=== PATIENT | male | born 2000 | race Caucasian/White ===

== ENCOUNTER 2018-01-14 00:27 | Emergency (ER) | payer SELFPAY ==
[2018-01-14] MEDS ORDERED: Tetracaine 0.5% OPHTH SOLN/PF 4 ML BOT ONE (00:38)
[2018-01-14] MEDS ORDERED: HYDROcodone/Acetaminophen 10/325 mg Tablet ONE (00:47)
== END 2018-01-14 01:05 | disposition home or self-care (01) ==
LOC: MADERS 00:27
DX: H16.133 Photokeratitis, bilateral (principal); F17.210 Nicotine dependence, cigarettes, uncomplicated; W89.8XXA Exposure to other man-made visible and ultraviolet light, initial encounter
CPT/HCPCS: 99283

== ENCOUNTER 2018-01-31 15:49 | Emergency (ER) | payer BC, SELFPAY ==
[~2018-01-31 15:49] MED LIST: Sodium Chloride 0.9% 1,000 ML BAG ONE
[2018-01-31] MEDS ORDERED: Ondansetron ODT 4 MG TAB ONE (17:10)
[2018-01-31] MEDS ORDERED: Ketorolac Tromethamine 30 MG/ML VIAL ONE (17:10)
[2018-01-31] MEDS ORDERED: Diphenoxylate HCl/Atropine Tablet ONE (17:10)
[2018-01-31] MEDS ORDERED: Metoclopramide HCl 10 MG/2 ML VIAL ONE (17:10)
[2018-01-31 17:14] LABS: Bilirubin Negative (Negative); Blood, Urine Negative (Negative); Clarity Clear (Clear); Glucose, Urine (Dipstick) Negative (Negative); Leukocyte Negative (Negative); Nitrite Negative (Negative); Protein, Urine (Dipstick) Negative (Neg-Trace); Urobilinogen 0.2 mg/dL (0.2-1.0); pH, Urine 5.5 (5.0-9.0)
[2018-01-31 17:34] LABS: #Basophils 0.1 thou/uL (0.0-0.2); #Eosinphils 0.4 thou/uL (0.0-0.7); #Lymphocytes 2.1 thou/uL (1.20-3.40); #Monocytes 0.7 thou/uL (0.11-0.59); #Neutrophils 5.9 thou/uL (1.40-6.50); %Eosinophils 4.7 % (0.0-10.0); %Lymphocytes 22.7 % (28.0-48.0); %Monocytes 7.1 % (0.0-4.0); %Neutrophils 64.5 % (31.0-61.0); Hemoglobin 14.9 g/dL (14.0-18.0); Mean Corpuscular HGB CONC 33.5 g/dL (32.0-36.0); Mean Corpuscular Hemoglobin 29.1 pg (25.0-35.0); Platelet Count 267 thou/uL (130-400); RBC Distribution Width 11.4 % (11.5-14.5); Red Blood Cell (RBC) Count 5.11 mill/uL (4.00-5.20); White Blood Cell (WBC) Count 9.1 thou/uL (4.8-10.8)
[2018-01-31 17:48] LABS: ALT (SGPT) 17 U/L (8-55); AST (SGOT) 17 U/L (10-45); Albumin 4.9 g/dL (3.5-5.0); Alkaline Phosphatase 58 U/L (Less than 750); Anion Gap 16 mmol/L (10-20); BUN (Urea Nitrogen) 17 mg/dL (8.4-21.0); Bilirubin, Total 0.6 mg/dL (0.2-1.2); Calc. Creatinine Clearance 0 mL/min (70-130); Calcium 10.2 mg/dL (7.8-10.44); Carbon Dioxide 24 mmol/L (22-29); Chloride 104 mmol/L (98-107); Estimated GFR-MDRD 88; Globulin 2.8 g/dL (2.4-3.5); Glucose 66 mg/dL (70-105); Lipase 15 U/L (8-78); Potassium 3.7 mmol/L (3.5-5.1); Protein, Total 7.7 g/dL (6.0-8.3); Sodium 140 mmol/L (136-145)
[2018-01-31] MEDS ORDERED: HYDROcodone/Acetaminophen 10/325 mg Tablet ONE (18:41)
[2018-01-31] MEDS ORDERED: AMOXicillin 250 MG CAP ONE (18:41)
[2018-01-31] MEDS ORDERED: Sulfameth/Trimethoprim DS 800-160mg TAB ONE (18:41)
--- NOTE | 2018-01-31 19:22 | CT ---
CT OF ABDOMEN AND PELVIS PERFORMED WITHOUT INTRAVENOUS CONTRAST ENHANCEMENT: 01/31/18 HISTORY: Nausea and vomiting with pain mostly in the right lower quadrant. Patient has a history of allergy to contrast. The lung bases are clear. The liver, spleen, pancreas, and gallbladder regions appear unremarkable. The right and left adrenal gland and right and left kidneys are normal in size. No renal calculi or o bstruction. No significant periaortic adenopathy. There are small mesenteric nodes noted. No signs of bowel obstruction. CT OF PELVIS PERFORMED WITHOUT CONTRAST ENHANCEMENT: The appendix is difficult to identify, although I see what I believe to be the appendix posterior to the cecum. It is not definitely enlarged. I do not see any definite fat stranding adjacent to the be endix. The study is limited due to lack of IV and oral contrast. No significant pelvic lymphadenopath y is seen. IMPRESSION: No definitive CT evidence for appendicitis. Slightly prominent mesenteric lymph nodes could indicate a mesenteric adenitis. POS: REFUGIO
== END 2018-01-31 18:49 | disposition home or self-care (01) ==
LOC: MADERS 15:49
DX: I88.0 Nonspecific mesenteric lymphadenitis (principal); F17.210 Nicotine dependence, cigarettes, uncomplicated; Z79.899 Other long term (current) drug therapy
CPT/HCPCS: 74176; 80053; 81003; 82150; 83690; 85025; 96361; 96374; 96375; J1885; J2765; J7050; Q0162

== ENCOUNTER 2018-06-09 13:28 | Emergency (ER) | payer BC, SELFPAY ==
[2018-06-09] MEDS ORDERED: Ondansetron ODT 4 MG TAB ONE (13:46)
[2018-06-09] MEDS ORDERED: Ibuprofen 800 MG TAB ONE (13:46)
[2018-06-09] MEDS ORDERED: Diphenoxylate HCl/Atropine Tablet ONE (14:25)
== END 2018-06-09 14:40 | disposition home or self-care (01) ==
LOC: MADERS 13:28
DX: B34.9 Viral infection, unspecified (principal); F17.210 Nicotine dependence, cigarettes, uncomplicated
CPT/HCPCS: 87804; 99284; Q0162

== ENCOUNTER 2018-12-22 14:13 | Emergency (ER) | payer BC | END 2018-12-22 16:07 | disposition home or self-care (01) | LOC: MADERS 14:13 | DX: H10.13 Acute atopic conjunctivitis, bilateral (principal); K21.9 Gastro-esophageal reflux disease without esophagitis; F41.9 Anxiety disorder, unspecified; F32.9 Major depressive disorder, single episode, unspecified; F17.210 Nicotine dependence, cigarettes, uncomplicated | CPT/HCPCS: 99282 ==

== ENCOUNTER 2019-06-03 10:18 | Emergency (ER) | payer BC ==
[~2019-06-03 10:18] MED LIST changes: -Sodium Chloride 0.9% 1,000 ML BAG ONE; +Sterile Water Irrigation 250 ML BOT ONE
[2019-06-03] MEDS ORDERED: Lidocaine-Prilocaine 2.5% Cream 5 GM TUBE ONE (10:42)
[2019-06-03] MEDS ORDERED: Adacel (T-DAP) 0.5 ML SYRINGE ONE (10:50)
[2019-06-03] MEDS ORDERED: Bacitracin 1 PK ONE (11:31)
== END 2019-06-03 11:40 | disposition home or self-care (01) ==
LOC: MADERS 10:18
DX: S01.01XA Laceration without foreign body of scalp, initial encounter (principal); K21.9 Gastro-esophageal reflux disease without esophagitis; F32.9 Major depressive disorder, single episode, unspecified; F41.9 Anxiety disorder, unspecified; Z71.6 Tobacco abuse counseling; F17.210 Nicotine dependence, cigarettes, uncomplicated; Z23 Encounter for immunization; W22.8XXA Striking against or struck by other objects, initial encounter
CPT/HCPCS: 12001; 90471; 90715; 99406

== ENCOUNTER 2019-06-12 16:42 | Emergency (ER) | payer BC | END 2019-06-12 17:14 | disposition home or self-care (01) | LOC: MADERS 16:42 | DX: S01.01XD Laceration without foreign body of scalp, subsequent encounter (principal); K21.9 Gastro-esophageal reflux disease without esophagitis; F41.9 Anxiety disorder, unspecified; F32.9 Major depressive disorder, single episode, unspecified; F17.210 Nicotine dependence, cigarettes, uncomplicated; W22.8XXD Striking against or struck by other objects, subsequent encounter ==

== ENCOUNTER 2019-09-29 10:50 | Emergency (ER) | payer BC, SELFPAY ==
[2019-09-29] MEDS ORDERED: Ondansetron ODT 4 MG TAB ONE (11:04)
== END 2019-09-29 11:20 | disposition home or self-care (01) ==
LOC: MADERS 10:50
DX: K52.9 Noninfective gastroenteritis and colitis, unspecified (principal); R03.0 Elevated blood-pressure reading, without diagnosis of hypertension; K21.9 Gastro-esophageal reflux disease without esophagitis; F41.9 Anxiety disorder, unspecified; F32.9 Major depressive disorder, single episode, unspecified; F17.210 Nicotine dependence, cigarettes, uncomplicated
CPT/HCPCS: 99283; Q0162

== ENCOUNTER 2019-12-10 14:18 | Emergency (ER) | payer SELFPAY ==
--- NOTE | 2019-12-10 15:52 | RAD ---
EXAM: CHEST ONE VIEW: 12/10/19 HISTORY: Cough. FINDINGS: Heart size is within normal limits. The lungs are clear. IMPRESSION: No significant acute intrathoracic disease. POS: RRE
== END 2019-12-10 16:06 | disposition home or self-care (01) ==
LOC: MADERS 14:18
DX: J06.9 Acute upper respiratory infection, unspecified (principal); K21.9 Gastro-esophageal reflux disease without esophagitis; F41.9 Anxiety disorder, unspecified; F31.9 Bipolar disorder, unspecified; F17.210 Nicotine dependence, cigarettes, uncomplicated
CPT/HCPCS: 71045

== ENCOUNTER 2020-09-20 13:42 | Emergency (ER) | payer SELFPAY ==
[~2020-09-20 13:42] MED LIST changes: +Iopamidol 370 76% 100 ML VIAL ONE; -Sterile Water Irrigation 250 ML BOT ONE
[2020-09-20] MEDS ORDERED: Sodium Chloride 0.9% 1,000 ML ONE (15:01)
[2020-09-20] MEDS ORDERED: Ondansetron PF 4 MG/2 ML Vial ONE (15:01)
--- NOTE | 2020-09-20 15:25 | CT ---
CT ABDOMEN AND PELVIS WITH IV CONTRAST 09/20/2020 CLINICAL INFORMATION: Abdominal pain predominantly in the right lower quadrant. COMPARISON: 01/31/2018 Technique: Multiple contiguous axial CT images are obtained through the abdomen and pelvis with IV contrast. Cor onal reformatted images are provided. FINDINGS: Lower Chest: Lung bases are clear. Vessels: Abdominal aorta is normal in caliber. Abdomen: Portal vein:Patent Gallbladder: Within normal limits for CT imaging. Liver: within normal limits. Spleen: within normal limits. Pancreas: within normal limits. Adrenals: within normal limits. Kidneys: within normal limits. Bowel: Normal caliber. Appendix: The appendix is visualized and normal in caliber. Peritoneum: No ascites or free air; no fluid collection. Mesentery and Retroperitoneum: Stable scattered nonenlarged mesenteric lymph nodes are identified. Abdominal Wall: within normal limits. Pelvis: Reproductive Organs: No pelvic masses. Bladder: Partially distended and normal in appearance. Bones: No suspicious lytic or sclerotic osseous lesions. IMPRESSION: 1. No acute findings in the abdomen or pelvis. 2. Slight increase in number of mesenteric lymph nodes which is unchanged compared to prior study and could be within normal limits for the patient. Mesenteric adenitis is a possibility, but there is no inflammatory stranding seen.
[2020-09-20 15:28] LABS: ALT (SGPT) 23 U/L (8-55); AST (SGOT) 22 U/L (5-34); Albumin 4.8 g/dL (3.5-5.0); Alkaline Phosphatase 66 U/L (40-110); Anion Gap 17 mmol/L (10-20); BUN (Urea Nitrogen) 13 mg/dL (8.9-20.6); Bilirubin, Total 0.4 mg/dL (0.2-1.2); Calc. Creatinine Clearance 0 mL/min (70-130); Calcium 9.3 mg/dL (7.8-10.44); Carbon Dioxide 24 mmol/L (22-29); Chloride 104 mmol/L (98-107); Globulin 3.1 g/dL (2.4-3.5); Glucose 97 mg/dL (70-105); Potassium 3.8 mmol/L (3.5-5.1); Protein, Total 7.9 g/dL (6.0-8.3); Sodium 141 mmol/L (136-145)
[2020-09-20 15:47] LABS: Band 10 % (5-11); Lymphocytes 5 % (21-51); MDiff Complete? YES; Mean Corpuscular HGB CONC 32.5 g/dL (32.0-36.0); Mean Corpuscular Hemoglobin 29.6 pg (27.0-31.0); Mean Corpuscular Volume 91.1 fL (78.0-98.0); Mean Platelet Volume 9.5 fL (7.4-10.4); Monocytes 5 % (0-10); Neutrophil 70 % (42-75); Platelet Count 182 thou/uL (130-400); Platelet Morphology Comment Appears Adequate; RBC Distribution Width 11.2 % (11.5-14.5); RBC Morphology Normal; Reactive Lymphocytes 10 % (0-10); Red Blood Cell (RBC) Count 5.41 mill/uL (4.70-6.10); White Blood Cell (WBC) Count 5.5 thou/uL (4.8-10.8)
== END 2020-09-20 16:35 | disposition home or self-care (01) ==
LOC: MADERS 13:42
DX: R10.31 Right lower quadrant pain (principal); R10.814 Left lower quadrant abdominal tenderness; R19.7 Diarrhea, unspecified; R11.2 Nausea with vomiting, unspecified; F17.210 Nicotine dependence, cigarettes, uncomplicated; K21.9 Gastro-esophageal reflux disease without esophagitis
CPT/HCPCS: 74177; 80053; 85025; 86140; 96361; 96374; J2405; J7050; Q9967

== ENCOUNTER 2024-01-28 18:31 | Emergency (ER) | payer SELFPAY ==
[2024-01-28] MEDS ORDERED: Cyclobenzaprine 10 MG TAB ONE (19:05)
[2024-01-28] MEDS ORDERED: Naproxen 500 MG TAB ONE (19:05)
== END 2024-01-28 19:20 | disposition home or self-care (01) ==
LOC: MADERS 18:31
DX: S39.011A Strain of muscle, fascia and tendon of abdomen, initial encounter (principal); F17.210 Nicotine dependence, cigarettes, uncomplicated; X50.9XXA Other and unspecified overexertion or strenuous movements or postures, initial encounter
CPT/HCPCS: 99283

== ENCOUNTER 2024-06-23 09:50 | Emergency (ER) | payer SELFPAY ==
[2024-06-23] MEDS ORDERED: Cephalexin 500 MG CAP ONE (10:14)
[2024-06-23] MEDS ORDERED: Lidocaine 1% w/Epinephrine 1:100K 20 ML VIAL ONE (10:14)
[2024-06-23] MEDS ORDERED: Bacitracin 1 PK ONE (10:14)
[2024-06-23] MEDS ORDERED: Boostrix 0.5 ML (Tdap) VIAL (>/=7 yrs of age) ONE (10:15)
== END 2024-06-23 10:43 | disposition home or self-care (01) ==
LOC: MADERS 09:50
DX: S61.411A Laceration without foreign body of right hand, initial encounter (principal); K21.9 Gastro-esophageal reflux disease without esophagitis; Z23 Encounter for immunization; Z87.891 Personal history of nicotine dependence; W26.8XXA Contact with other sharp object(s), not elsewhere classified, initial encounter
CPT/HCPCS: 12001; 90471; 90715